=== PATIENT | female | born 1985 | race American Indian/Alaskan Native ===

== ENCOUNTER 2018-07-12 09:29 | Emergency (ER) | payer MEDICAID, OTHER ==
[2018-07-12 09:32] VITALS: BMI 24.0
--- NOTE | 2018-07-12 10:21 | ED PDOC ---
HPI: Headache Time Seen by Provider: 07/12/18 09:44 Chief Complaint (Nursing): Flu-like Symptoms Chief Complaint (Provider): DE LA PAZ History Per: Patient History/Exam Limitations: no limitations Additional Complaint(s): Pt reports pain behind R eye intermittently X 1 year, associated with photophobia. States she just got over cold and now has DE LA PAZ and "sinus infection" with nasal discharge. Denies fever, blurry vision, neck stiffness, nausea, vomiting. Took Motrin at home without relief. Past Medical History Reviewed: Nursing Documentation, Vital Signs Vital Signs: Last Vital Signs Temp 98.4 F 07/12/18 09:32 Pulse 74 07/12/18 09:32 Resp 17 07/12/18 09:32 BP 126/84 07/12/18 09:32 Pulse Ox 100 07/12/18 09:32 - Medical History PMH: Depression Denies: Chronic Kidney Disease - Family History Family History: States: Unknown Family Hx - Social History Current smoker - smoking cessation education provided: No Alcohol: None - Immunization History Hx Tetanus Toxoid Vaccination: No Hx Influenza Vaccination: Yes Hx Pneumococcal Vaccination: No - Home Medications Home Medications: Ambulatory Orders Medication Instructions Recorded Ibuprofen [Motrin] 600 mg PO Q6 #20 tab 01/04/18 Pseudoephedrine HCl [Sudafed] 30 mg PO Q8 #10 tablet 01/04/18 Fluticasone Propionate [Flonase] 2 spr IN DAILY 7 Days #1 bottle 07/12/18 Loratadine [Claritin] 10 mg PO DAILY #7 tab 07/12/18 Naproxen [Naprosyn] 500 mg PO BID PRN #15 tablet 07/12/18 - Allergies Allergies/Adverse Reactions: Allergies Allergy/AdvReac Type Severity Reaction Status Date / Time No Known Allergies Allergy Verified 01/04/18 09:50 Review of Systems Constitutional: Negative for: Fever, Chills Eyes: Negative for: Vision Change, Eyelid Inflammation, Redness ENT: Positive for: Nose Discharge, Nose Congestion Respiratory: Negative for: Cough, Shortness of Breath Gastrointestinal: Negative for: Nausea, Vomiting, Abdominal Pain, Diarrhea Musculoskeletal: Negative for: Neck Pain Skin: Negative for: Rash, Lesions Neurological: Positive for: Headache. Negative for: Weakness, Numbness, Incoordination, Change in Speech, Confusion, Seizures, Altered Mental Status, Dizziness Physical Exam - Reviewed Nursing Documentation Reviewed: Yes Vital Signs Reviewed: Yes - Physical Exam Appears: Positive for: Well, No Acute Distress Head Exam: Positive for: ATRAUMATIC, NORMAL INSPECTION Skin: Positive for: Normal Color, Warm, Dry Eye Exam: Positive for: Normal appearance, EOMI, PERRL ENT: Positive for: Sinus Pain/Drainage Neck: Positive for: Normal, Painless ROM, Supple Cardiovascular/Chest: Positive for: Regular Rate, Rhythm Respiratory: Positive for: Normal Breath Sounds Gastrointestinal/Abdominal: Positive for: Normal Exam, Bowel Sounds, Soft. Negative for: Tenderness Extremity: Positive for: Normal ROM Neurologic/Psych: Positive for: Alert, executive community planning II-XII, Oriented. Negative for: Motor/Sensory Deficits, Aphasia, Facial Droop - ECG O2 Sat by Pulse Oximetry: 100 Medical Decision Making Medical Decision Makin yo female with R sided DE LA PAZ. - CT head - Toradol Accession No. : [id number] Patient Name / ID : TRINITY WHEATLEY / [id number] Exam Date : 07/12/2018 10:35:44 ( Approved ) Study Comment : Sex / Age : F / 32Y Creator : Alisa Trevino MD Dictator : Alisa Trevino MD Wire Mesh Gate Assembler : Materials Management Supervisor : Alisa Trevino MD Approver2 : Report Date : 07/12/2018 10:59:06 My Comment : Date of service: 07/12/2018 PROCEDURE: CT HEAD WITHOUT CONTRAST. HISTORY: Right-sided headache COMPARISON: None available. TECHNIQUE: Axial computed tomography images were obtained through the head/brain without intravenous contrast. Radiation dose: Total exam DLP = 816.16 mGy-cm. This CT exam was performed using one or more of the following dose reduction techniques: Automated exposure control, adjustment of the mA and/or kV according to patient size, and/or use of iterative reconstruction technique. FINDINGS: HEMORRHAGE: No intracranial hemorrhage. BRAIN: Ludwig-white matter differentiation is preserved. There is no mass, mass effect or abnormal extra-axial fluid collection. There is no territorial infarction. The midline sagittal structures are normal. VENTRICLES: The ventricles are normal in size, shape and configuration. CALVARIUM: There is no calvarial fracture or extracranial soft tissue swelling. PARANASAL SINUSES: Predominantly clear. MASTOID AIR CELLS: Predominantly clear. OTHER FINDINGS: None. IMPRESSION: No acute intracranial abnormality. Disposition - Clinical Impression Clinical Impression: Headache - Disposition Referrals: [facility] [Outside] Disposition: Routine/Home Disposition Time: 12:36 Condition: IMPROVED Prescriptions: Fluticasone Propionate [Flonase] 2 spr IN DAILY 7 Days #1 bottle Loratadine [Claritin] 10 mg PO DAILY #7 tab Naproxen [Naprosyn] 500 mg PO BID PRN #15 tablet PRN Reason: Pain, Moderate (4-7) Instructions: Headache, Adult Forms: [facility] (Korean)
--- NOTE | 2018-07-12 11:02 | CT ---
Date of service: 07/12/2018 PROCEDURE: CT HEAD WITHOUT CONTRAST. HISTORY: Right-sided headache COMPARISON: None available. TECHNIQUE: Axial computed tomography images were obtained through the head/brain without intravenous contrast. Radiation dose: Total exam DLP = 816.16 mGy-cm. This CT exam was performed using one or more of the following dose reduction techniques: Automated exposure control, adjustment of the mA and/or kV according to patient size, and/or use of iterative reconstruction technique. FINDINGS: HEMORRHAGE: No intracranial hemorrhage. BRAIN: Ludwig-white matter differentiation is preserved. There is no mass, mass effect or abnormal extra-axial fluid collection. There is no territorial infarction. The midline sagittal structures are normal. VENTRICLES: The ventricles are normal in size, shape and configuration. CALVARIUM: There is no calvarial fracture or extracranial soft tissue swelling. PARANASAL SINUSES: Predominantly clear. MASTOID AIR CELLS: Predominantly clear. OTHER FINDINGS: None. IMPRESSION: No acute intracranial abnormality.
[2018-07-12 12:43] VITALS: BP 133/85; PULSE 64; RESP 18; TEMP 98.2
[2018-07-15 15:04] VITALS: O2SAT 100
== END 2018-07-12 12:46 | disposition home or self-care (01) ==
LOC: H.ER 09:29
DX: R51 Headache (principal); Z86.59 Personal history of other mental and behavioral disorders
CPT/HCPCS: 70450; 81025; 96372; 99283; J1885